=== PATIENT | female | born 1995 | race Caucasian/White ===

== ENCOUNTER 2017-02-04 17:36 | Emergency (ER) | payer MEDICAID, OTHER ==
[~2017-02-04] VITALS: Ht 165.1 cm; Wt 75.9 kg
[2017-02-04 17:46] VITALS: BP 130/60; PULSE 92; RESP 16; TEMP 99.4; O2SAT 99
[2017-02-04 18:30] LABS: BILIRUBIN, URINE NEG (NEG); BLOOD, URINE LARGE (NEG); GLUCOSE,URINE NEG (NEG); KETONE, URINE NEG (NEG); NITRITE,URINE NEG (NEG); URINE LEUKOCYTE ESTERASE NEG (NEG)
[2017-02-04] MEDS ORDERED: SODIUM CHLOR 0.9% 1000 ML INJ 1,000 ML IV SCH (18:31)
--- NOTE | 2017-02-04 18:37 | PD ---
HPI Chief Complaint: Flank/Kidney Pain Time Seen by Provider: 18:26 Travel History International Travel<30 days: No Contact w/Intl Traveler<30days: No Traveled to known affect area: No History of Present Illness HPI 21-year-old female here for evaluation of fever, right upper quadrant abdominal pain, sore throat with enlarged tonsils. Symptoms have been going on for about 3 days. She has had intermittent fevers and chills. Right upper quadrant abdominal pain described as pressure/cramping, worse with movements and palpation as well as eating, radiates to her right flank. Patient also describes a sore throat that is moderate, worse with swallowing. She is able to swallow and tolerate her secretions. She became nauseous last night and had an episode of vomiting. She has also had some increased urinary frequency, no dysuria or hematuria. No history of abdominal surgeries. No history of IVDU. PFSH Past Medical History Medical other: Yes (ear tubes) Tetanus Vaccination: < 5 Years Influenza Vaccination: No ?: Not LMP: 01/26/17 Past Surgical History Section: Yes (x2) Tonsillectomy: Yes Social History Alcohol Use: Yes (occ) Tobacco Use: Yes (1ppd) Substance Use: No Allergies-Medications (Allergen,Severity, Reaction): Coded Allergies: latex (Verified Allergy, Severe, hives, 02/04/17) acetaminophen (Verified Allergy, Unknown, "throat swells shut", 02/04/17) hydrocodone (Verified Allergy, Unknown, "throat swells shut", 02/04/17) Reported Meds & Prescriptions Reported Meds & Active Scripts Active No Active Prescriptions or Reported Medications Review of Systems Except as stated in HPI: all other systems reviewed are Neg Physical Exam Narrative GENERAL: Pleasant, well-developed, well-nourished, no apparent distress. SKIN: Focused skin assessment warm/dry. No rash. HEAD: Atraumatic. Normocephalic. EYES: Pupils equal and round. No scleral icterus. No injection or drainage. ENT: Mucous membranes pink and moist. Bilateral tonsillar enlargement with bilateral exudates and erythema. Uvula is midline. No drooling or stridor. Normal phonation. No trismus. NECK: Trachea midline. No JVD. No nuchal rigidity. CARDIOVASCULAR: Regular rate and rhythm. RESPIRATORY: No accessory muscle use. Clear to auscultation. Breath sounds equal bilaterally. GASTROINTESTINAL: Abdomen soft, nondistended. Moderate right upper quadrant tenderness without peritoneal signs. Rest of abdomen is soft and nontender. Normal bowel sounds. : Exam performed in the presence of female nurse. Normal external genitalia. Scant/whitish/physiologic/[id number]-huogvuxa vaginal discharge. Normal appearing cervix. No CMT or adnexal masses or tenderness. MUSCULOSKELETAL: No obvious deformities. No clubbing. No cyanosis. No edema. Mild right CVA tenderness. No left CVA tenderness. NEUROLOGICAL: Awake and alert. No obvious cranial nerve deficits. Motor grossly within normal limits. Normal speech. PSYCHIATRIC: Appropriate mood and affect; insight and judgment normal. Data Data Last Documented VS Vital Signs Date Time Temp Pulse Resp B/P (MAP) Pulse Ox O2 Delivery O2 Flow Rate FiO2 02/04/17 21:00 99.3 77 14 117/67 (84) 99 Room Air Orders Orders Urinalysis - C+S If Indicated (02/04/17 17:53) Ed Urine Pregnancytest Poc (02/04/17 17:53) Complete Blood Count With Diff (02/04/17 18:31) Comprehensive Metabolic Panel (02/04/17 18:31) Prothrombin Time / Inr (Pt) (02/04/17 18:31) Act Partial Throm Time (Ptt) (02/04/17 18:31) Us Abdomen Gallbladder (02/04/17 ) Iv Access Insert/Monitor (02/04/17 18:31) Ecg Monitoring (02/04/17 18:31) Oximetry (02/04/17 18:31) Ondansetron Inj (Zofran Inj) (02/04/17 18:45) Sodium Chlor 0.9% 1000 Ml Inj (Ns 1000 M (02/04/17 18:31) Sodium Chloride 0.9% Flush (Ns Flush) (02/04/17 18:45) Morphine Inj (Morphine Inj) (02/04/17 18:45) Group A Rapid Strep Screen (02/04/17 18:31) Monoscreen (02/04/17 18:31) Influenzae A/B Antigen (02/04/17 18:31) Strep Culture (Group A) (02/04/17 18:45) Acetaminophen (Tylenol) (02/04/17 19:30) Ct Abd/Pel W Iv Contrast(Rout) (02/04/17 ) Diatrizoate Liq ( Gastrozoila Liq) (02/04/17 19:30) Oral Contrast - Adult (02/04/17 19:57) Iohexol 350 Inj (Omnipaque 350 Inj) (02/04/17 20:35) Ketorolac Inj (Toradol Inj) (02/04/17 21:15) Gc And Chlamydia Pcr (02/04/17 21:06) Wet Prep Profile (02/04/17 21:06) Amoxicillin (Trimox) (02/04/17 21:45) Labs Laboratory Tests Test 02/04/17 18:20 02/04/17 18:45 02/04/17 21:15 Urine Collection Type CLEAN CATCH Urine Color YELLOW Urine Turbidity HAZY Urine pH 6.0 Urine Specific [place] 1.015 Urine Protein NEG mg/dL Urine Glucose (UA) NEG mg/dL Urine Ketones NEG mg/dL Urine Occult Blood LARGE Urine Nitrite NEG Urine Bilirubin NEG Urine Leukocyte Esterase NEG Urine RBC 4-9 /hpf Urine WBC 0-2 /hpf Urine Squamous Epithelial Cells 0-5 /hpf Microscopic Urinalysis Comment CULT NOT INDICATED Urine Collection Time 1820 White Blood Count 13.4 TH/MM3 Red Blood Count 4.35 MIL/MM3 Hemoglobin 12.8 GM/DL Hematocrit 38.3 % Mean Corpuscular Volume 87.9 FL Mean Corpuscular Hemoglobin 29.4 PG Mean Corpuscular Hemoglobin Concent 33.4 % Red Cell Distribution Width 12.3 % Platelet Count 172 TH/MM3 Mean Platelet Volume 8.6 FL Neutrophils (%) (Auto) 74.3 % Lymphocytes (%) (Auto) 14.7 % Monocytes (%) (Auto) 10.1 % Eosinophils (%) (Auto) 0.2 % Basophils (%) (Auto) 0.7 % Neutrophils # (Auto) 9.9 TH/MM3 Lymphocytes # (Auto) 2.0 TH/MM3 Monocytes # (Auto) 1.4 TH/MM3 Eosinophils # (Auto) 0.0 TH/MM3 Basophils # (Auto) 0.1 TH/MM3 CBC Comment DIFF FINAL Differential Comment Prothrombin Time 11.4 SEC Prothromb Time International Ratio 1.1 RATIO Activated Partial Thromboplast Time 28.6 SEC Blood Urea Nitrogen 6 MG/DL Creatinine 0.67 MG/DL Random Glucose 89 MG/DL Total Protein 7.8 GM/DL Albumin 3.6 GM/DL Calcium Level 8.7 MG/DL Alkaline Phosphatase 57 U/L Aspartate Amino Transf (AST/SGOT) 15 U/L Alanine Aminotransferase (ALT/SGPT) 21 U/L Total Bilirubin 0.3 MG/DL Sodium Level 135 MEQ/L Potassium Level 3.4 MEQ/L Chloride Level 102 MEQ/L Carbon Dioxide Level 25.7 MEQ/L Anion Gap 7 MEQ/L Estimat Glomerular Filtration Rate 110 ML/MIN Monoscreen NEG Clue Cells (Wet Prep) NONE SEEN Vaginal Trichomonas (Wet Prep) NONE SEEN Vaginal Yeast (Wet Prep) NONE SEEN MDM Medical Decision Making Medical Screen Exam Complete: Yes Emergency Medical Condition: Yes Differential Diagnosis Cholecystitis, cholelithiasis, hepatitis, perihepatitis, tonsillitis, strep pharyngitis, mononucleosis, sepsis, metabolic abnormality Narrative Course Initial vital signs show heart rate 92, blood pressure 130/60, pulse ox 99% on room air, oral temp of 99.4F. CBC: WBC 13.4, hemoglobin 12.8, hematocrit 38.3, platelets 172, neutrophils 74% , monocytes 10.1% CMP is essentially unremarkable. UA: Hazy, large occult blood, 4-9 RBCs Influenza A swab negative. Group A strep negative. Monoscreen is negative. Right upper quadrant ultrasound: CONCLUSION: 1. Questionable small nonobstructing right renal calculi. 2. Unremarkable gallbladder. CT Abd/Pelvis: CONCLUSION: 1. The kidneys are unremarkable in appearance with no renal calculi, obstruction or inflammatory change. 2. Unremarkable bowel gas pattern and gallbladder. Patient was made aware of all findings. She is resting comfortably. She is sexually active with one partner whom she states is her fianc, however she believes that he may have cheated on her. She tells me that she is having some vaginal discharge. I told her I will like to perform a pelvic exam to evaluate for possible STD as this may be causing her right upper quadrant symptoms with a perihepatitis from gonorrhea infection. She is amenable to this. Wet prep is negative for yeast, negative for clue cells, negative for Trichomonas. Case discussed with reading radiologist and appendix appears normal. Patient made aware of all findings and is resting comfortably once again. There are no peritoneal signs on abdominal exam. Her pharynx is very impressively enlarged tonsils and bilateral exudates. I am going to start her on amoxicillin for this. She is stable for discharge home with further workup as an outpatient with a primary care physician this week. She was advised to stay hydrated with plenty of fluids and to keep fever under control with Tylenol and ibuprofen. She was informed on when to return to the emergency department. She verbalizes understanding and agreement with plan. Diagnosis Primary Impression: Pharyngitis Qualified Codes: J02.9 - Acute pharyngitis, unspecified Additional Impression: Right flank pain Referrals: [facility] 3 days Primary Care Physician 3 days Additional Instructions: Follow-up with a primary care physician this week. Stay hydrated with plenty of fluids. Take ibuprofen/Tylenol for fever and/or pain. Return to the emergency department for worsening symptoms or any other concerns. Scripts Amoxicillin (Amoxicillin) 875 Mg Tab 875 MG PO BID for Infection for 10 Days, #20 TAB 0 Refills Prov: Nilesh Rivas MD 02/04/17 Disposition: DISCHARGE HOME Condition: Stable Nilesh Rivas MD Feb 04, 2017 18:37
[2017-02-04 18:40] LABS: SQUAMOUS EPITHELIAL CELL URINE 0-5 /hpf (0-5); URINE COLOR YELLOW (YELLW/STRAW); WBC, URINE 0-2 /hpf (0-5)
[2017-02-04] MEDS ORDERED: ONDANSETRON HCL 4 MG/2 ML VIAL IVP ONE (18:45)
[2017-02-04] MEDS ORDERED: MORPHINE SULFATE 2 MG/ML INJ IV PUSH ONE (18:45)
[2017-02-04 18:56] LABS: AUTOMATED NEUTROPHIL # 9.9 TH/MM3 (1.8-7.7); BASOPHIL # 0.1 TH/MM3 (0-0.2); BASOPHIL % 0.7 % (0.0-2.0); EOSINOPHIL % 0.2 % (0.0-4.0); HEMATOCRIT 38.3 % (35.0-46.0); HEMOGLOBIN 12.8 GM/DL (11.6-15.3); LYMPH % 14.7 % (9.0-44.0); MEAN CELL VOLUME 87.9 FL (80.0-100.0); MEAN CORPUSCULAR HEMOGLOBIN 29.4 PG (27.0-34.0); MEAN CORPUSCULAR HGB CONC 33.4 % (32.0-36.0); MEAN PLATELET VOLUME 8.6 FL (7.0-11.0); MONO % 10.1 % (0.0-8.0); MONOCYTE # 1.4 TH/MM3 (0-0.9); NEUT % 74.3 % (16.0-70.0); PLATELET COUNT 172 TH/MM3 (150-450); RED BLOOD COUNT 4.35 MIL/MM3 (4.00-5.30); RED CELL DISTRIBUTION WIDTH 12.3 % (11.6-17.2); WHITE BLOOD COUNT 13.4 TH/MM3 (4.0-11.0)
[2017-02-04 19:00] VITALS: BP 136/59; PULSE 88; RESP 14; O2SAT 98
[2017-02-04 19:03] LABS: CHLORIDE 102 MEQ/L (98-107); SODIUM (NA) 135 MEQ/L (136-145)
[2017-02-04 19:06] LABS: CALCIUM 8.7 MG/DL (8.5-10.1)
[2017-02-04 19:07] LABS: ALBUMIN 3.6 GM/DL (3.4-5.0); BICARBONATE 25.7 MEQ/L (21.0-32.0); BLOOD UREA NITROGEN 6 MG/DL (7-18); GLUCOSE,RANDOM 89 MG/DL (74-106)
[2017-02-04 19:09] LABS: INTERNATIONAL NORMALIZED RATIO 1.1 RATIO; PROTHROMBIN TIME - PATIENT 11.4 SEC (9.8-11.6)
[2017-02-04 19:10] LABS: ALT (GPT) 21 U/L (10-53); AST (GOT) 15 U/L (15-37); CREATININE 0.67 MG/DL (0.50-1.00); GLOMERULAR FILTRATION RATE 110 ML/MIN (>89)
[2017-02-04 19:11] LABS: TOTAL BILIRUBIN ADULT 0.3 MG/DL (0.2-1.0)
[2017-02-04 19:12] LABS: TOTAL PROTEIN 7.8 GM/DL (6.4-8.2)
[2017-02-04 19:13] LABS: ALKALINE PHOSPHATASE 57 U/L (45-117)
[2017-02-04 19:25] VITALS: PULSE 88; RESP 14; O2SAT 98
[2017-02-04] MEDS ORDERED: DIATRIZOATE MEGLUM/DIATRIZOATE SOD 9 ML CUP PO ONE (19:30)
[2017-02-04] MEDS ORDERED: ACETAMINOPHEN 325 MG TAB PO ONE (19:30)
--- NOTE | 2017-02-04 19:31 | RADRPT ---
EXAM DATE/TIME: 02/04/2017 19:08 [facility] COMPARISON: No previous studies available for comparison. INDICATIONS : Right upper quadrant pain. MEDICAL HISTORY : Ear tubes. SURGICAL HISTORY : Tonsillectomy. section. ENCOUNTER: Initial ACUITY: 3 days PAIN SCORE: 5/10 LOCATION: Right upper quadrant MEASUREMENTS: LIVER: 16.0 cm length COMMON DUCT: 4 mm RIGHT KIDNEY: 11.9 x 3.9 x 4.8 cm FINDINGS: LIVER: Normal echotexture without focal lesion or ductal dilatation. COMMON DUCT: No intraluminal mass or stone visualized. GALLBLADDER: Contains no stones, demonstrates no wall thickening or pericholecystic fluid. PANCREAS: The visualized portions are within normal limits. RIGHT KIDNEY: No evidence of hydronephrosis or mass. There are several trainee echogenic foci largest measures 3-4 mm in size. There is no distinct shadowing. CONCLUSION: 1. Questionable small nonobstructing right renal calculi. 2. Unremarkable gallbladder. Rigoberto Leon MD on February 04, 2017 at 19:28 Board Certified Radiologist. This report was verified electronically.
[2017-02-04] MEDS: SODIUM CHLORIDE 0.9% FLUSH 10 ML FLUSH IV FLUSH PRN ×2 (19:32→21:33)
[2017-02-04 20:10] VITALS: BP 133/59; PULSE 82; RESP 16; O2SAT 99
[2017-02-04 20:27] LABS: MONOSCREEN NEG (NEG)
[2017-02-04] MEDS ORDERED: IOHEXOL 350 MG/ML 10 ML VIAL (for RAD DIAG) IVCONTRAST ONE (20:35)
--- NOTE | 2017-02-04 20:54 | RADRPT ---
EXAM DATE/TIME: 02/04/2017 20:33 [facility] COMPARISON: No previous studies available for comparison. INDICATIONS : Right flank pain. IV CONTRAST: 96 cc Omnipaque 350 (iohexol) IV ORAL CONTRAST: Prescribed oral contrast ingested. RADIATION DOSE: 9.49 CTDIvol (mGy) MEDICAL HISTORY : None SURGICAL HISTORY : section. Tonsillectomy. ENCOUNTER: Initial ACUITY: 1 day PAIN SCALE: 5/10 LOCATION: Right flank TECHNIQUE: Volumetric scanning of the abdomen and pelvis was performed. Using automated exposure control and ad justment of the mA and/or kV according to patient size, radiation dose was kept as low as reasonably achievable to obtain optimal diagnostic quality images. DICOM format image data is available electro nically for review and comparison. FINDINGS: LOWER LUNGS: The visualized lower lungs are clear. LIVER: Homogeneous density without lesion. There is no dilation of the biliary tree. No calcified gallston es. SPLEEN: Normal size without lesion. PANCREAS: Within normal limits. KIDNEYS: Normal in size and shape. There is no mass, stone or hydronephrosis. ADRENAL GLANDS: Within normal limits. VASCULAR: There is no aortic aneurysm. BOWEL/MESENTERY: The stomach, small bowel, and colon demonstrate no acute abnormality. There is no free intraperitone al air or fluid. ABDOMINAL WALL: Within normal limits. RETROPERITONEUM: There is no lymphadenopathy. BLADDER: No wall thickening or mass. REPRODUCTIVE: Within normal limits. INGUINAL: There is no lymphadenopathy or hernia. MUSCULOSKELETAL: Within normal limits for patient age. CONCLUSION: 1. The kidneys are unremarkable in appearance with no renal calculi, obstruction or inflammatory fowler ge. 2. Unremarkable bowel gas pattern and gallbladder. Rigoberto Leon MD on February 04, 2017 at 20:50 Board Certified Radiologist. This report was verified electronically.
[2017-02-04 21:00] VITALS: BP 117/67; PULSE 77; RESP 14; TEMP 99.3; O2SAT 99
[2017-02-04] MEDS ORDERED: KETOROLAC TROMETHAMINE 30 MG/ML (IVP) VIAL IV PUSH ONE (21:15)
[2017-02-04] MEDS ORDERED: AMOX875T PO (21:41)
[2017-02-04 21:45] VITALS: BP 131/57; PULSE 73; RESP 14; O2SAT 100
[2017-02-04] MEDS ORDERED: AMOXICILLIN 875 MG TAB PO ONE (21:45)
== END 2017-02-04 22:05 | disposition home or self-care (01) ==
LOC: PHED 17:36
DX: J02.9 Acute pharyngitis, unspecified (principal); R10.11 Right upper quadrant pain; J35.1 Hypertrophy of tonsils; N89.8 Other specified noninflammatory disorders of vagina; F17.200 Nicotine dependence, unspecified, uncomplicated
CPT/HCPCS: 74177; 76705; 80053; 81001; 84703; 85025; 85610; 85730; 86308; 87081; 87210; 87491; 87591; 87804; 87880; 96361; 96374; 96375; 99285; J1885; J2270; J2405; J7030; Q9963; Q9967